=== PATIENT | female | born 1955 | race Caucasian/White ===

== ENCOUNTER 2018-07-02 18:22 | Emergency (ER) | payer BC ==
[2018-07-02 18:30] VITALS: BP 149/88; PULSE 76; RESP 18; TEMP 98.3
[2018-07-02] MEDS ORDERED: AMOXIC-POT CLAV 875MG STARTER 2 EACH TABLET PO STA (18:58)
--- NOTE | 2018-07-02 19:02 | ED ---
General Adult HPI - General Chief complaint: ENT Stated complaint: ear pain & bleeding Time Seen by Provider: 07/02/18 18:34 Source: patient, RN notes reviewed Mode of arrival: ambulatory Limitations: no limitations - History of Present Illness Initial comments: 63-year-old female presents to the emergency department for a chief complaint of left ear pain. Patient states that the past 4 days she has had significant congestion as well as a sore throat. States that today when she was eating dinner she felt a pop in the pain in her left ear. Patient states it then started bleeding. 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 Patient has diminished hearing out of the left ear after this popping sensation. Patient denies fevers or chills. Patient denies headache. Denies cough. States she did try to take a Tylenol cold and flu about 3 hours ago but it did not help significantly.Patient has no other complaints at this time including shortness of breath, chest pain, abdominal pain, nausea or vomiting, headache, or visual changes. - Related Data Previous Rx's Medication Instructions Recorded Amoxicillin/Potassium Clav 1 tab PO Q12HR #20 tab 07/02/18 [Augmentin 875-125 Tablet] Fluticasone Propionate [Flonase 2 spray EA NOSTRIL DAILY 7 Days ml 07/02/18 Allergy Relief] Allergies Allergy/AdvReac Type Severity Reaction Status Date / Time diphenhydramine Allergy Unknown Verified 07/02/18 18:30 [From Shr[facility]] Review of Systems ROS Statement: Those systems with pertinent positive or pertinent negative responses have been documented in the HPI. ROS Other: All systems not noted in ROS Statement are negative. Past Medical History Past Medical History: No Reported History History of Any Multi-Drug Resistant Organisms: None Reported Past Surgical History: Tonsillectomy, Tubal Ligation Past Psychological History: No Psychological Hx Reported Smoking Status: Never smoker Past Alcohol Use History: None Reported Past Drug Use History: None Reported General Exam Limitations: no limitations General appearance: alert, in no apparent distress Head exam: Present: atraumatic, normocephalic, normal inspection Eye exam: Present: normal appearance, PERRL, EOMI. Absent: scleral icterus, conjunctival injection, periorbital swelling ENT exam: Present: normal exam, mucous membranes moist, normal external ear exam. Absent: normal oropharynx (Patient has nasal drainage noted of the posterior oropharynx, no tonsillar exudates noted bilaterally), TM's normal bilaterally (Serous otitis noted of the left tympanic membrane. He do not see an obvious rupture at this time that there is inflammation of the TM.) Neck exam: Present: normal inspection, full ROM. Absent: tenderness, meningismus, lymphadenopathy Respiratory exam: Present: normal lung sounds bilaterally. Absent: respiratory distress, wheezes, rales, rhonchi, stridor Cardiovascular Exam: Present: regular rate, normal rhythm, normal heart sounds. Absent: systolic murmur, diastolic murmur, rubs, gallop, clicks Neurological exam: Present: alert, oriented X3, CN II-XII intact Psychiatric exam: Present: normal affect, normal mood Course Vital Signs 07/02/18 18:26 Temperature 98.3 F Pulse Rate 76 Respiratory 18 Rate Blood Pressure 149/88 O2 Sat by Pulse 99 Oximetry Medical Decision Making - Medical Decision Making 63-year-old female presents to the emergency department for chief complaint of left ear pain. Patient has been very congested for the past 4 days. States she felt a pop in her ear and it was bleeding. 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 On exam patient does have a noted serous otitis media. I do not see evidence for tympanic rupture at this time however with the bleeding and fluid coming from the ear it is likely. Diminished finger rub testing of the left ear. Therefore patient will be treated as if she has a ruptured tympanic membranes, will not get water in the left ear. Patient will be given Augmentin. Also be put on Flonase. Discussed in-depth close follow-up with ENT as she already has hearing problems in the right ear. Patient does agree with this. Will return here if she has any worsening symptoms. Disposition Clinical Impression: Otitis media, serous, TM rupture Disposition: HOME SELF-CARE Condition: Good Instructions (If sedation given, give patient instructions): Earache (ED), Serous Otitis Media (ED) Additional Instructions: Please keep ear dry. Do not let water get in the ear even when showering. Take Augmentin as directed. Use nasal spray as directed. Follow up with ENT tomorrow. Return here if you have any worsening symptoms. Prescriptions: Amoxicillin/Potassium Clav [Augmentin 875-125 Tablet] 1 tab PO Q12HR #20 tab Fluticasone Propionate [Flonase Allergy Relief] 2 spray EA NOSTRIL DAILY 7 Days ml Is patient prescribed a controlled substance at d/c from ED?: No Referrals: Alexia Francois MD [Primary Care Provider] - 1-2 days Frank Rodriguez DO [Doctor of Osteopathic Medicine] - 1-2 days Time of Disposition: 18:59
== END 2018-07-02 19:12 | disposition home or self-care (01) ==
LOC: EC 18:22
DX: H72.92 Unspecified perforation of tympanic membrane, left ear (principal); H65.92 Unspecified nonsuppurative otitis media, left ear; H91.91 Unspecified hearing loss, right ear; J34.89 Other specified disorders of nose and nasal sinuses; Z88.8 Allergy status to other drugs, medicaments and biological substances
CPT/HCPCS: 99282